=== PATIENT | male | born 1950 | race Caucasian/White ===

== ENCOUNTER → 2021-07-08 16:01 | Outpatient (CLI) | payer MEDICARE, OTHER, SELFPAY ==
--- NOTE | 2021-07-08 16:06 | DI.MRI.S_ITS ---
PROCEDURE: MR PELIS WO/W CON INDICATIONS: prostate cancer TECHNIQUE: Coronal HASTE, axial T1 FSE with fat saturation, 3-plane nonbreath-hold T2 FSE. After the administration of contrast, dynamic axial, delayed axial and coronal VIBE or 2-D FLASH with fat saturation through the pelvis. Optional diffusion weighted imaging and ADC may be performed. COMPARISON: None. FINDINGS: Image quality: Diffusion weighted and dynamic contrast enhanced images are diagnostic. Prostate: Gland size is 8.2 x 5.5 x 6.9 cm; ellipsoid gland volume is 162 mL. This measurement includes a prominent median lobe indenting on the bladder base. The most recent prostate MRI demonstrated a volume of 128 cc, measured in a similar fashion. There is morphology of benign prostatic hypertrophy including an extruded nodule into the posterolateral right peripheral zone at the mid gland level. There are no convincing T2 hypointense lesions or diffusion abnormalities within the enlarged prostate gland. There is heterogeneous early arterial enhancement of the gland, expected in BPH. Genitourinary system: Bladder wall thickness is normal. Distal ureters are non distended. Seminal vesicles appear normal. Bowel and peritoneum: No pathologic free pelvic fluid. Inferior colon and small bowel loops are normal in caliber. Nodes and vessels: There are a few small round bilateral pelvic sidewall lymph nodes, the largest measuring up to 7 mm No other pelvic or inguinal adenopathy by size criteria. Iliac vessels are normal in caliber. No presacral or inguinal adenopathy. Soft tissues: No inguinal hernias. Bones: There is mild enhancement around the left L5 transverse process as it articulates with the superior aspect of the left SI joint. There is a prior left femoral jenni present resulting in artifact. Marrow demonstrates otherwise normal overall signal, without lesions to suggest metastases. IMPRESSION: 1. No MR evidence of clinically significant prostate cancer. PI-RADS one. 2. Increased prostate volume compared to the prior study. 3. Nonspecific, chronically prominent pelvic sidewall lymph nodes. 4. Degenerative enhancement in the superior left sacroiliac joint region. Dictated by: Delfina Verma M.D. on 07/09/2021 at 10:24 Approved by: Delfina Verma M.D. on 07/09/2021 at 10:57
== END ==
PROVIDERS: Referring Provider Specialist; Visit Provider Specialist
DX: D40.0 Neoplasm of uncertain behavior of prostate
CPT/HCPCS: 72197; A9579

== ENCOUNTER → 2024-07-01 08:32 | Outpatient (CLI) | payer MEDICARE, OTHER, SELFPAY ==
[2024-07-01 09:47] LABS: Prostate Specific Antigen 6.98 ng/mL (0.10-4.00)
== END ==
PROVIDERS: PCP Internal Medicine; Referring Provider Specialist; Visit Provider Specialist
DX: N40.1 Benign prostatic hyperplasia with lower urinary tract symptoms (principal); N13.8 Other obstructive and reflux uropathy
CPT/HCPCS: 36415; 84153

== ENCOUNTER → 2024-12-06 07:02 | Outpatient (CLI) | payer MEDICARE, OTHER, SELFPAY ==
[2024-12-06 08:31] LABS: Prostate Specific Antigen 3.48 ng/mL (0.10-4.00)
== END ==
PROVIDERS: PCP Internal Medicine; Referring Provider Urology; Visit Provider Urology
DX: N40.1 Benign prostatic hyperplasia with lower urinary tract symptoms (principal); N13.8 Other obstructive and reflux uropathy; C61 Malignant neoplasm of prostate
CPT/HCPCS: 36415; 84153

== ENCOUNTER → 2025-06-18 08:40 | Outpatient (CLI) | payer MEDICARE, OTHER, SELFPAY ==
[2025-06-18 10:33] LABS: Prostate Specific Antigen 6.50 ng/mL (0.10-4.00)
== END ==
PROVIDERS: PCP Internal Medicine; Referring Provider Urology; Visit Provider Urology
DX: C61 Malignant neoplasm of prostate (principal)
CPT/HCPCS: 36415; 84153